=== PATIENT | female | born 1950 | race Caucasian/White ===

== ENCOUNTER 2016-06-24 16:02 | Observation (INO) | payer MEDICARE ==
[~2016-06-24 16:02] MED LIST: ASPIR 8181 M1 PO; ISOSORBIDE MONO30 M4 PO; LOPRESSOR25 MG/TA6 PO; NORCO 5/3251 TA2 PO; PAMELOR25 MG PO; PROTONIX40 M1 PO; PROTONIX40 M2 PO; RESTORIL15 M1 PO; SIMVASTATIN20 MG PO; TOPROL XL25 M1 PO; ZESTRIL20 MG PO
[2016-06-24] MEDS ORDERED: PLAVIX75 M1 PO (16:10)
[2016-06-24] MEDS ORDERED: NORVASC5 M2 PO (16:10)
[2016-06-24] MEDS ORDERED: COREG6.25 M1 PO (16:10)
[2016-06-24 17:22] LABS: BASO % 0.4 % (0-2); BASO ABSOLUTE COUNT 0.1 tho/cmm (0.0-0.2); EOS % 1.5 % (0-7); EOSINOPHIL ABSOLUTE COUNT 0.2 tho/cmm (0.0-0.7); HCT-HEMATOCRIT 41.4 % (34.0-49.0); HGB-HEMOGLOBIN 13.3 gm/dl (12.0-15.5); LYMPH % 31.6 % (20-45); LYMPH ABSOLUTE COUNT 3.6 tho/cmm (0.8-4.5); MCHC MEAN CORPUSCULAR HGB CONC 32.1 % (32.0-36.0); MCV (MEAN CELL VOLUME) 87.2 fl (82.0-96.0); MEAN PLATELET VOLUME 11.5 cmc (9.4-12.4); MONO % 9.5 % (0-12); MONOCYTE ABSOLUTE COUNT 1.1 tho/cmm (0.0-1.2); NEUTROPHIL ABSOLUTE COUNT 6.5 tho/cmm (1.6-8.0); NEUTROPHIL-AUTOMATED 6.5 tho/cmm (1.6-8.0); PLATELET COUNT 314 tho/cmm (150-450); RED BLOOD COUNT 4.75 mil/cmm (4.00-5.20); WHITE BLOOD COUNT 11.4 tho/cmm (4.0-10.0)
[2016-06-24 17:41] LABS: ANION GAP 15 mmol/L (0-20); BLOOD UREA NITROGEN 13 mg/dl (6-24); CALCIUM 9.2 mg/dl (8.5-10.5); CARBON DIOXIDE-VENOUS 23 mmol/L (22-32); CHLORIDE 111 mmol/l (96-110); CREATININE 0.97 mg/dl (0.50-1.10); GLUCOSE 111 mg/dL (70-110); SODIUM 145 mmol/L (135-145); eGFR VALUE FOR BLACK 70 mL/Min
[2016-06-24 17:44] LABS: POTASSIUM 3.8 mmol/L (3.7-5.1)
[2016-06-25] MEDS ORDERED: COREG3.125 M1 PO (19:12)
[2016-06-25] MEDS ORDERED: NORVASC5 M2 PO (19:14)
[2016-11-27] MEDS ORDERED: RESTORIL15 M1 PO (11:19)
[2016-11-27] MEDS ORDERED: CATAPRES0.1 M1 PO (11:21)
[2016-11-27] MEDS ORDERED: ULTRAM50 M1 PO (11:22)
[2016-11-28] MEDS ORDERED: RANEXA500 M1 PO (12:40)
[2016-11-28] MEDS ORDERED: ISOSORBIDE MONO30 M4 PO (12:41)
[2016-11-28] MEDS ORDERED: NITROGLYCERIN0.4 M2 SL (12:42)
[2016-11-28] MEDS ORDERED: XANAX0.25 M1 PO (12:49)
== END 2016-06-25 20:05 ==
LOC: EDMED 16:02 → EMR2 18:35 → PCUA 20:30
PROVIDERS: Emergency Medicine; Physician Assistant; ADMIT Internal Medicine Cardiovascular Disease
DX: R07.9 Chest pain, unspecified (principal); I25.10 Atherosclerotic heart disease of native coronary artery without angina pectoris; I73.9 Peripheral vascular disease, unspecified; E78.5 Hyperlipidemia, unspecified; I95.1 Orthostatic hypotension; R55 Syncope and collapse; Z72.0 Tobacco use; Z79.899 Other long term (current) drug therapy; Z79.82 Long term (current) use of aspirin
CPT/HCPCS: G0378; J2405